=== PATIENT | female | born 1950 | race Caucasian/White ===

== ENCOUNTER → 2017-06-05 | Outpatient (CLI) | payer MEDICARE, OTHER ==
--- NOTE | 2017-06-05 13:04 | XR ---
EXAMINATION TYPE: XR chest 2V DATE OF EXAM: 06/05/2017 COMPARISON: NONE TECHNIQUE: PA and lateral views submitted. HISTORY: Pain FINDINGS: There is no sizable pneumothorax. Arthropathy of the shoulders. No overt failure or pleural effusion. Subsegmental linear changes at the lung bases. Degenerative change of the spine. IMPRESSION: 1. Left basilar atelectasis or early infiltrate
--- NOTE | 2017-06-05 13:05 | XR ---
EXAMINATION TYPE: XR thoracic spine 2V DATE OF EXAM: 06/05/2017 COMPARISON: NONE HISTORY: Pain Alignment is anatomic. There is no compression deformities. Hypertrophic and degenerative change of the thoracic spine with slight curvature noted. IMPRESSION: 1. Multilevel degenerative disc disease
== END | disposition home or self-care (01) ==
LOC: RADXRMAIN 11:56
PROVIDERS: ATTEND Family Medicine
DX: M51.34 Other intervertebral disc degeneration, thoracic region (principal); R09.89 Other specified symptoms and signs involving the circulatory and respiratory systems
CPT/HCPCS: 71046; 72070

== ENCOUNTER → 2017-08-05 | Outpatient (CLI) | payer MEDICARE, OTHER ==
--- NOTE | 2017-08-05 10:17 | XR ---
EXAMINATION TYPE: XR chest 2V DATE OF EXAM: 08/05/2017 COMPARISON: 06/05/2017 TECHNIQUE: PA and lateral views submitted. HISTORY: Follow-up pneumonia FINDINGS: The lungs are clear and there is no pneumothorax, pleural effusion, or focal pneumonia. There is per sistent linear changes at the left lung base. Hyperinflation noted. Hypertrophic and degenerative felicia nge of the spine noted. IMPRESSION: 1. Improving subsegmental linear changes at the left lung base. Chronic atelectasis favored over pneu monia.
== END | disposition home or self-care (01) ==
LOC: RADXRMAIN 09:46
PROVIDERS: ATTEND Family Medicine
DX: R91.8 Other nonspecific abnormal finding of lung field (principal)
CPT/HCPCS: 71046